=== PATIENT | female | born 1990 | race African-American/Black ===

== ENCOUNTER 2025-07-20 00:40 | Emergency (ER) | payer MEDICAID ==
[~2025-07-20] VITALS: Ht 175.3 cm; Wt 74.0 kg
[2025-07-20 00:41] VITALS: O2SAT 99
[2025-07-20] MEDS: ACETAMINOPHEN 325MG TABLET PO ONE (00:56)
[2025-07-20] MEDS: SODIUM CHLORIDE 0.9% 1,000 ML IV ONE ×2 (01:21→03:29)
[2025-07-20 01:59] LABS: BASOPHILS % 1.6 % (0.0-2.0); EOSINOPHILS % 7.3 % (0.0-5.0); HEMATOCRIT. 38.6 % (36.0-48.0); HEMOGLOBIN. 12.6 g/dL (12.0-16.0); LYMPHOCYTES % 49.8 % (20.0-50.0); MEAN PLATELET VOLUME 9.3 fl (7.4-10.4); MONOCYTES % 7.1 % (2.0-8.0); NEUTROPHILS % 34.2 % (40.0-76.0); PLATELET 203 x1000/uL (130-400); RED BLOOD CELL COUNT 4.28 mill/uL (4.2-5.4); RED CELL DISTRIBUTION WIDTH 12.9 % (11.6-14.6)
[2025-07-20 02:06] LABS: HCG SCREEN NEGATIVE
[2025-07-20 02:08] LABS: CREATININE 0.8 mg/dL (0.6-1.0); UREA NITROGEN BLOOD 12 mg/dL (9-23)
[2025-07-20 02:11] LABS: PHOSPHORUS 3.2 mg/dL (2.5-4.9)
[2025-07-20] MEDS: KETOROLAC 15MG/ML VIAL IV NR (02:31)
[2025-07-20] MEDS: POTASSIUM CHLORIDE 20MEQ/PACKET PO NR (02:34)
[2025-07-20] MEDS: POTASSIUM CHLORIDE 20MEQ TABLET SR PO ONE (03:29)
[2025-07-20] MEDS ORDERED: POTA-205 MT (03:29)
[2025-07-20] MEDS ORDERED: BACL-141 MT (03:29)
[2025-07-20] MEDS: ONDANSETRON HCL 4MG/2ML INJ IV ONE (03:29)
[2025-07-20] MEDS ORDERED: NAPR-1074 MT (03:29)
[2025-07-20 03:53] VITALS: BP 120/75; PULSE 83; RESP 17; TEMP 36.7; O2SAT 96
== END 2025-07-20 03:59 | disposition home or self-care (01) ==
LOC: ER 00:40
DX: E87.6 Hypokalemia (principal); F12.90 Cannabis use, unspecified, uncomplicated; J45.909 Unspecified asthma, uncomplicated; Z79.899 Other long term (current) drug therapy; Z88.0 Allergy status to penicillin
CPT/HCPCS: 99285; 96374; 96361; 96375; 80048; 84703; 83735; 84100; 85025; 36415; J1885; J2405; J7030